=== PATIENT | female | born 1980 | race Caucasian/White ===

== ENCOUNTER 2019-02-08 18:55 | Emergency (ER) | payer OTHER, SELFPAY ==
--- OUTSIDE RECORDS SUMMARY | 2019-02-08 18:57 | XMS REPORT ---
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 [place] Special exam / Vance DON investigations and examinations - Gynecological examination Dermatitis 692.9 Active [place] Contact rash/non / Vance DON dermatitis and specific other eczema, skin unspecified eruption cause MORBID Active [place] Morbid obesity OBESITY / Vance DON Screening V76.12 Active [place] Other screening mammogram / Vance DON mammogram Venereal V74.5 Active [place] Screening disease / Vance DON examination for screening venereal disease Medication List Medication Instructions Start Stop Generic NDC Status Provider Patient Date Date Name Instruction LISINOPRIL 20 MG LISINOPRIL 10100571533 Active [place] Active ORAL TABLET 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 Active [place] Active INTRAUTERINE COPPER Vance DON INTRAUTERINE INTRAUTERINE DEVICE Vital Signs Date Name Value Unit Range Description blood pressure, diastolic 85 mm[Hg] BP brooks blood pressure, systolic 123 mm[Hg] BP sys height E&M 63 [in_us] Bdy height pulse rate E&M 89 /min Heart rate temperature E&M 97.9 [degF] Body temperature weight E&M 230.38 [lb_av] Weight Measured Diagnostic Results Date Name Value Unit Range Description Lab Report: Chlamydia/GC Amplification - Microbiology Neisseria gonorrhoeae DNA probe Negative Negative Lab Report: Chlamydia/GC Amplification - Lab chlamydia DNA probe Negative Negative Procedures Code Procedure Name Date Entry Date Standard Description [id number] Health Education/Supportive 09:33:52 CDT Counseling [id number] Health Education/Supportive 08:29:19 INSTRUCTOR PHYSICAL EDUCATION Counseling [facility]-[id number] New Patient Well Exam (40 - 64 Yrs) - [id number] 09:16:26 INSTRUCTOR PHYSICAL EDUCATION
[2019-02-08 20:45] LABS: Absolute Lymphocytes (CBC) 2.7 K/uL (0.7-4.9); Absolute Monocytes 0.5 K/uL (0.1-1.3); Absolute Neutrophil 7.2 K/uL (1.8-8.0); Basophils % 0.6 % (0-1.3); Eosinophils % 2.9 % (0-4.4); Hematocrit 36.6 % (36.0-45.0); Lymphocytes % 24.8 % (15.3-44.8); MPV 8.4 fL (7.6-11.3); RBC Red Blood Cell Count 4.27 M/uL (3.86-4.86)
[2019-02-08 20:46] LABS: Protime INR 1.1
[2019-02-08] MEDS ORDERED: ONDANSETRON 4 MG/2 ML VIAL ONE (20:51)
[2019-02-08] MEDS ORDERED: FAMOTIDINE 20 MG/2 ML VIAL IV ONE (20:51)
[2019-02-08 20:59] LABS: ALT/SGPT 15 U/L (12-78); AST/SGOT 12 U/L (15-37); Albumin 3.8 g/dL (3.4-5.0); Alkaline Phosphatase 85 U/L (45-117); BUN Blood Urea Nitrogen 15 mg/dL (7-18); Bicarbonate 26 mmol/L (21-32); Bilirubin Direct 0.1 mg/dL (0-0.2); Bilirubin Total 0.3 mg/dL (0.2-1.0); Glucose Level 96 mg/dL (74-106); Lipase 87 U/L (73-393); NT PRO-BNP 54 pg/mL (<125); Potassium 4.3 mmol/L (3.5-5.1); Protein, Total 7.7 g/dL (6.4-8.2); Sodium Level 139 mmol/L (136-145); Troponin (Emerg Dept Use Only) < 0.02 ng/mL (0.0-0.045)
--- NOTE | 2019-02-08 20:59 | RAD REPORT ---
EXAM DESCRIPTION: RAD - Chest Single View - 02/08/2019 8:46 pm CLINICAL HISTORY: retrosternal chest pain Chest pain. COMPARISON: CHEST SINGLE VIEW dated 12/06/2013; ABDOMEN ACUTE SERIES dated 02/18/2009 FINDINGS: Portable technique limits examination quality. The lungs are grossly clear. The heart is mildly prominent in size. No displaced fractures. IMPRESSION: No acute intrathoracic process suspected.
[2019-02-08] MEDS ORDERED: MAGNE/ALUM HYDROXD 30 ML UCUP ONE (21:45)
[2019-02-08] MEDS ORDERED: LIDOCAINE VISCOUS 2% SOLN 15 ML UDC ONE (21:45)
[2019-02-08 23:49] LABS: Urine Specific Gravity 1.025 (1.005-1.030)
[2019-02-09 01:21] LABS: Urine Blood 3+ (NEG); Urine Glucose NEGATIVE (NEG); Urine Protein NEGATIVE (NEG); Urine pH 7.5 (5.0-7.0)
--- NOTE | 2019-02-09 01:48 | EDPHYS ---
Physician Documentation [facility] Name: Jesusita Boles Age: 38 yrs Sex: Female : 1980 Arrival Date: 02/08/2019 Time: 18:56 Bed 16 Private MD: ED Physician Marco A Flores HPI: 02/08 20:20 This 38 yrs old Female presents to ER via Ambulatory with complaints of Chest cp Pain. 20:20 The patient or guardian reports chest pain that is located primarily in the substernal cp area. 20:20 Onset: 1 week(s) ago. The pain radiates to Duration: The patient or guardian reports cp multiple episodes, that wax and wane. 20:20 The chest pain is described as aching. cp 20:20 Associated signs and symptoms: Pertinent positives: shortness of breath, Pertinent cp negatives: abdominal pain, cough, diaphoresis, headache, lower extremity pain, lower extremity swelling, syncope, vomiting. 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 - Social history:: Smoking status: Patient/guardian denies using tobacco. - Ebola Screening: : No symptoms or risks identified at this time. ROS: 20:25 Constitutional: Negative for body aches, chills, fever, poor PO intake. cp 20:25 Eyes: Negative for injury, pain, redness, and discharge. cp 20:25 ENT: Negative for drainage from ear(s), ear pain, sore throat, difficulty swallowing, difficulty handling secretions. 20:25 Neck: Negative for pain with movement, pain at rest, stiffness. 20:25 Cardiovascular: Positive for chest pain, of the substernal, Negative for edema, palpitations. 20:25 Respiratory: Negative for cough, shortness of breath, wheezing. 20:25 Abdomen/GI: Positive for nausea, Negative for vomiting, diarrhea, constipation, dysphagia, black/tarry stool, rectal bleeding. 20:25 Back: Positive for radiated pain. 20:25 Skin: Negative for cellulitis, rash. 20:25 Neuro: Negative for altered mental status, dizziness, headache, numbness, syncope, weakness. 20:25 All other systems are negative. Exam: 20:30 Constitutional: The patient appears in no acute distress, alert, awake, cp non-diaphoretic, non-toxic, well developed, well nourished, uncomfortable. 20:30 Head/Face: Normocephalic, atraumatic. cp 20:30 Eyes: Pupils equal round and reactive to light, extra-ocular motions intact. Lids and lashes normal. Conjunctiva and sclera are non-icteric and not injected. Cornea within normal limits. Periorbital areas with no swelling, redness, or edema. ENT: Nares patent. No nasal discharge, no septal abnormalities noted. Tympanic membranes are normal and external auditory canals are clear. Oropharynx with no redness, swelling, or masses, exudates, or evidence of obstruction, uvula midline. Mucous membranes moist. Neck: Trachea midline, no thyromegaly or masses palpated, and no cervical lymphadenopathy. Supple, full range of motion without nuchal rigidity, or vertebral point tenderness. No Meningismus. Chest/axilla: Normal chest wall appearance and motion. Nontender with no deformity. No lesions are appreciated. 20:30 Cardiovascular: Rate: normal, Rhythm: regular, Pulses: Pulses are 2+ in right radial artery and left radial artery. Heart sounds: murmur, not appreciated, Edema: is not appreciated, JVD: is not appreciated. 20:30 Respiratory: the patient does not display signs of respiratory distress, Respirations: normal, no use of accessory muscles, no retractions, no splinting, no tachypnea, labored breathing, is not present, Breath sounds: are clear throughout, no decreased breath sounds, no stridor, no wheezing. 20:30 Abdomen/GI: Inspection: abdomen appears normal, Bowel sounds: active, all quadrants, Palpation: abdomen is soft and non-tender, in all quadrants, rebound tenderness, is not appreciated, voluntary guarding, is not appreciated, involuntary guarding, is not appreciated. 20:30 Back: pain, that is mild, ROM is normal. 20:30 Skin: no rash present. 20:30 Neuro: Orientation: to person, place \T\ time. Mentation: is normal, Cerebellar function: is grossly normal, Motor: moves all fours, strength is normal, Sensation: is normal. 02/09 00:45 ECG was reviewed by the Attending Physician. cp Vital Signs: 02/08 18:59 BP 129 / 91; Pulse 71; Resp 18 S; Temp 98.2(TE); Pulse Ox 100% on R/A; Weight 102.06 kg aa5 (R); Height 5 ft. 3 in. (160.02 cm) (R); Pain 10/10; 19:30 BP 135 / 77; Pulse 67; Resp 16 S; Pulse Ox 100% on R/A; rv 20:00 BP 121 / 71 RA; Pulse 81; Resp 18 S; Pulse Ox 100% on R/A; rv 20:30 BP 117 / 69 RA Supine; Pulse 60; Resp 16 S; Pulse Ox 100% on R/A; rv 21:30 BP 103 / 64 RA; Pulse 52; Resp 15 S; Pulse Ox 98% on R/A; rv 22:00 BP 107 / 73 RA; Pulse 58; Resp 17 S; Pulse Ox 100% on R/A; rv 23:00 BP 100 / 54; Pulse 67; Resp 17; Pulse Ox 99% ; rr5 02/09 00:00 BP 102 / 65; Pulse 62; Resp 17; Pulse Ox 98% ; rr5 01:00 BP 115 / 76; Pulse 63; Resp 16; Pulse Ox 99% ; rr5 02:00 BP 118 / 75; Pulse 66; Resp 17; Pulse Ox 99% ; rr5 02/08 18:59 Body Mass Index 39.86 (102.06 kg, 160.02 cm) aa5 MDM: 02/08 19:54 Patient medically screened. cp 20:30 Differential diagnosis: abnormal EKG, acute myocardial infarction, acute pericarditis, cp chest wall pain, esophagitis, gastritis, gastroesophageal reflux disease (GERD), pancreatitis, pleurisy, pneumonia, pneumothorax, pulmonary embolus, stable angina, unstable angina. 02/09 01:45 Data reviewed: vital signs, nurses notes, lab test result(s), EKG, radiologic studies, cp CT scan, plain films. 01:45 Test interpretation: by ED physician or midlevel provider: ECG, plain radiologic cp studies. Counseling: I had a detailed discussion with the patient and/or guardian regarding: the historical points, exam findings, and any diagnostic results supporting the discharge/admit diagnosis, lab results, radiology results, the need for outpatient follow up, a family practitioner, a mixologist, to return to the emergency department if symptoms worsen or persist or if there are any questions or concerns that arise at home. Response to treatment: the patient's symptoms have markedly improved after treatment, VSS. Patient reports pain resolved with medications. Will discharge to home for continued monitoring. 02/08 20:16 Order name: Basic Metabolic Panel 02/08 20:16 Order name: CBC with Diff 02/08 20:16 Order name: LFT's cp 02/08 20:16 Order name: Magnesium; Complete Time: 21:27 cp 02/08 20:16 Order name: NT PRO-BNP; Complete Time: 21:27 cp 02/08 20:16 Order name: PT-INR cp 02/08 20:16 Order name: Troponin (emerg Dept Use Only); Complete Time: 21:27 cp 02/08 20:16 Order name: Lipase; Complete Time: 21:27 cp 02/08 20:16 Order name: Basic Metabolic Panel; Complete Time: 21:27 EDMS 02/08 20:16 Order name: CBC with Automated Diff; Complete Time: 21:27 EDMS 02/08 20:16 Order name: Liver (Hepatic) Function; Complete Time: 21:27 EDMS 02/08 22:49 Order name: LAB Add On 02/08 22:52 Order name: D-Dimer EDIA 02/08 20:16 Order name: XRAY Chest (1 view); Complete Time: 21:27 cp 02/08 20:16 Order name: EKG; Complete Time: 20:17 cp 02/08 20:16 Order name: Cardiac monitoring; Complete Time: 20:36 cp 02/08 20:16 Order name: EKG - Nurse/Tech; Complete Time: 20:36 cp 02/08 20:16 Order name: IV Saline Lock; Complete Time: 20:36 cp 02/08 20:16 Order name: Labs collected and sent; Complete Time: 20:36 cp 02/08 20:16 Order name: O2 Per Protocol; Complete Time: 21:02 cp 02/08 20:16 Order name: O2 Sat Monitoring; Complete Time: 21: cp 02/08 20:16 Order name: Urine Test (obtain specimen); Complete Time: 23:52 cp 02/08 23:06 Order name: CT Chest For PE Angio cp 02/08 23:20 Order name: Urine --Ancillary (enter results) 6 02/08 23:53 Order name: Troponin I cp 02/08 23:56 Order name: Urine Dipstick--Ancillary (enter results) 6 02/08 22:12 Order name: Blood Pressure Recheck: bilateral upper extremity; Complete Time: 22:12 cp 02/08 23:53 Order name: EKG - Nurse/Tech; Complete Time: 00:41 cp EC:45 Rate is 66 beats/min. Rhythm is regular. RI interval is normal. QRS interval is normal. cp QT interval is normal. T waves are Inverted in lead III. Interpreted by me. Reviewed by me. Administered Medications: 02/08 20:30 Drug: Pepcid 20 mg Route: IVP; Site: left antecubital; rv 22:08 Follow up: Response: Pain is decreased rv 20:30 Drug: Zofran 4 mg Route: IVP; Site: left antecubital; rv 22:08 Follow up: Response: No adverse reaction rv 21:45 Drug: GI Cocktail without - (Maalox Suspension 30 ml, Lidocaine Liquid 2 % 15 rv ml) Route: PO; 02/09 02:00 Follow up: Response: No adverse reaction rr5 Disposition: 03:53 Co-signature as Attending Physician, Marco A Flores MD. ma2 Disposition: 02/09/19 01:47 Discharged to Home. Impression: Other chest pain, Gastro-esophageal reflux disease. - Condition is Stable. - Discharge Instructions: Nonspecific Chest Pain, Gastroesophageal Reflux Disease, Adult, Aspirin and Your Heart. - Prescriptions for Protonix 40 mg Oral Tablet - take 1 tablet by ORAL route once daily; 30 tablet. Zofran 4 mg Oral Tablet - take 1 tablet by ORAL route every 12 hours As needed; 20 tablet. - Medication Reconciliation Form, Thank You Letter, Antibiotic Education, Prescription Opioid Use, Family Work Release form. - Follow up: Marcelino Lopez MD; When: 1 week; Reason: Worsening of condition. - Problem is new. - Symptoms have improved. Signatures: Dispatcher [employer] Zandra Barraza RN RN aa5 Christofer Grace PA PA cp Marco A Flores MD MD ma2 Hunter Schultz, RN RN rv Jamil Quintana, RN RN rr5 Corrections: (The following items were deleted from the chart) 02/08 22:52 22:49 D-DIMER+COAG.LAB.BRZ ordered. EDMS EDMS 02/09 02:01 01:47 02/09/2019 01:47 Discharged to Home. Impression: Other chest pain; rr5 Gastro-esophageal reflux disease. Condition is Stable. Forms are Medication Reconciliation Form, Thank You Letter, Antibiotic Education, Prescription Opioid Use. Follow up: Marcelino Lopez; When: 1 week; Reason: Worsening of condition. Problem is new. Symptoms have improved. cp 07:28 02/08 20:20 Associated signs and symptoms: Pertinent positives: nausea, Pertinent cp negatives: cough, diaphoresis, lower extremity pain, lower extremity swelling, shortness of breath, syncope, cp
--- NOTE | 2019-02-09 01:48 | ER ---
Nurse's Notes [facility] Name: Jesusita Boles Age: 38 yrs Sex: Female : 1980 Arrival Date: 02/08/2019 Time: 18:56 Bed 16 Private MD: Diagnosis: Other chest pain;Gastro-esophageal reflux disease Presentation: 02/08 18:58 Presenting complaint: Patient states: mid-sternal chest pain that began 1 week ago and aa5 has gotten worse since last night. Pt reports SOB, denies vomiting. Transition of care: patient was not received from another setting of care. Onset of symptoms was 2018. Risk Assessment: Do you want to hurt yourself or someone else? Patient reports no desire to harm self or others. Initial Sepsis Screen: Does the patient meet any 2 criteria? No. Patient's initial sepsis screen is negative. Does the patient have a suspected source of infection? No. Patient's initial sepsis screen is negative. Care prior to arrival: None. 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 - Social history:: Smoking status: Patient/guardian denies using tobacco. - Ebola Screening: : No symptoms or risks identified at this time. Screenin:04 Abuse screen: Denies threats or abuse. Denies injuries from another. Nutritional rv screening: No deficits noted. Tuberculosis screening: No symptoms or risk factors identified. Fall Risk None identified. Assessment: 20:00 General: Appears in no apparent distress. comfortable, Behavior is calm, cooperative. rv 20:00 Pain: Complains of pain in chest Pain does not radiate. Pain began suddenly. Neuro: rv Level of Consciousness is awake, alert, obeys commands, Oriented to person, place, time, situation. Cardiovascular: Rhythm is regular. Respiratory: Airway is patent. GI: No signs and/or symptoms were reported involving the gastrointestinal system. : No signs and/or symptoms were reported regarding the genitourinary system. EENT: No signs and/or symptoms were reported regarding the EENT system. Derm: Skin is intact. 21:08 Reassessment: Patient appears in no apparent distress at this time. Patient and/or rv family updated on plan of care and expected duration. Pain level reassessed. Patient is alert, oriented x 3, equal unlabored respirations, skin warm/dry/pink. 22:09 Reassessment: Patient appears in no apparent distress at this time. Patient and/or rv family updated on plan of care and expected duration. Pain level reassessed. Patient is alert, oriented x 3, equal unlabored respirations, skin warm/dry/pink. Patient states feeling better. Patient states symptoms have improved. 23:53 Reassessment: Patient appears in no apparent distress at this time. back on Ct scan rr5 scan placed on bed comfortably. 02/09 00:40 Reassessment: Patient appears in no apparent distress at this time. Patient is alert, rr5 oriented x 3, equal unlabored respirations, skin warm/dry/pink. repeat ECG done. awaiting for laboratory report. Patient states feeling better. Patient states symptoms have improved. 02:00 Reassessment: Patient appears in no apparent distress at this time. Patient is alert, rr5 oriented x 3, equal unlabored respirations, skin warm/dry/pink. discharge instruction given and explained without complaints made. Patient states feeling better. Patient states symptoms have improved. Vital Signs: 02/08 18:59 BP 129 / 91; Pulse 71; Resp 18 S; Temp 98.2(TE); Pulse Ox 100% on R/A; Weight 102.06 kg aa5 (R); Height 5 ft. 3 in. (160.02 cm) (R); Pain 10/10; 19:30 BP 135 / 77; Pulse 67; Resp 16 S; Pulse Ox 100% on R/A; rv 20:00 BP 121 / 71 RA; Pulse 81; Resp 18 S; Pulse Ox 100% on R/A; rv 20:30 BP 117 / 69 RA Supine; Pulse 60; Resp 16 S; Pulse Ox 100% on R/A; rv 21:30 BP 103 / 64 RA; Pulse 52; Resp 15 S; Pulse Ox 98% on R/A; rv 22:00 BP 107 / 73 RA; Pulse 58; Resp 17 S; Pulse Ox 100% on R/A; rv 23:00 BP 100 / 54; Pulse 67; Resp 17; Pulse Ox 99% ; rr5 04 00:00 BP 102 / 65; Pulse 62; Resp 17; Pulse Ox 98% ; rr5 01:00 BP 115 / 76; Pulse 63; Resp 16; Pulse Ox 99% ; rr5 02:00 BP 118 / 75; Pulse 66; Resp 17; Pulse Ox 99% ; rr5 02/08 18:59 Body Mass Index 39.86 (102.06 kg, 160.02 cm) aa5 ED Course: 02/08 18:56 Patient arrived in ED. ds1 18:58 Arm band placed on. aa5 18:59 Triage completed. aa5 19:05 EKG completed in triage. Results shown to MD. aa5 19:54 Christofer Grace PA is PHCP. cp 19:54 Marco A Flores MD is Attending Physician. cp 19:58 Hunter Schultz, LUIS MANUEL is Primary Nurse. rv 20:45 Inserted saline lock: 22 gauge in left antecubital area, using aseptic technique. Blood rv collected. Patient maintains SpO2 saturation greater than 95% on room air. 20:47 XRAY Chest (1 view) In Process Unspecified. EDMS 21:03 Basic Metabolic Panel Sent. rv 21:03 CBC with Diff Sent. rv 21:03 LFT's Sent. rv 21:04 Patient has correct armband on for positive identification. Placed in gown. Bed in low rv position. Call light in reach. Side rails up X 1. Adult w/ patient. playground aide on. Pulse ox on. NIBP on. 23:32 Inserted saline lock: 20 gauge in right forearm, using aseptic technique. rr5 02/09 00:44 CT completed. Patient tolerated procedure well. Patient moved to CT via wheelchair. Patient moved back from CT. 00:54 CT Chest For PE Angio In Process Unspecified. EDMS 01:46 Marcelino Lopez MD is Referral Physician. cp 02:00 No provider procedures requiring assistance completed. IV discontinued, intact, rr5 bleeding controlled, No redness/swelling at site. Pressure dressing applied. Administered Medications: 02/08 20:30 Drug: Pepcid 20 mg Route: IVP; Site: left antecubital; rv 22:08 Follow up: Response: Pain is decreased rv 20:30 Drug: Zofran 4 mg Route: IVP; Site: left antecubital; rv 22:08 Follow up: Response: No adverse reaction rv 21:45 Drug: GI Cocktail without - (Maalox Suspension 30 ml, Lidocaine Liquid 2 % 15 rv ml) Route: PO; 02/09 02:00 Follow up: Response: No adverse reaction rr5 Outcome: 01:47 Discharge ordered by . cp 02:00 Discharged to home ambulatory, with family. rr5 02:00 Condition: stable 02:00 Discharge instructions given to patient, family, Instructed on discharge instructions, follow up and referral plans. medication usage, Demonstrated understanding of instructions, follow-up care, medications, Prescriptions given X 2. 02:01 Patient left the ED. rr5 Signatures: Dispatcher [employer] EDMS Ming Viera Demi ds1 Zandra Ferreira RN RN aa5 Christofer Grace PA PA Hunter Negron RN RN rv Jamil Quintana RN RN rr5
[2019-02-09 02:07] VITALS: TEMP 98.2
[2019-02-09 02:16] VITALS: O2SAT 99
[2019-02-09 02:17] VITALS: BP 118/75
--- NOTE | 2019-02-09 10:04 | RAD REPORT ---
EXAM DESCRIPTION: CT - Chest For Pe Angio - 02/09/2019 5:08 am CLINICAL HISTORY: Chest pain. COMPARISON: None. TECHNIQUE: Axial [address] imaging of the thorax utilizing intravenous contrast. Reformatted 3 mm anna nal and sagittal images reviewed. Reconstructed right and left oblique 2 mm images of the pulmonary v asculature also reviewed. This exam was performed according to our departmental dose-optimization program which includes automa garo exposure control, adjustment of the mA and/or kV according to patient size and/or use of iterativ e reconstruction technique FINDINGS: PULMONARY ARTERIES: Normal caliber main pulmonary artery. No filling defect within the ri ght atrium, right ventricle, central, or peripheral pulmonary vasculature. HEART/GREAT VESSELS: The heart is borderline enlarged. No pericardial fluid. Normal caliber thoracic aorta. MEDIASTINUM/SARAH: No filling defect within the central airways. Normal esophagus. No adenopathy. LUNGS/PLEURA: Lungs and pleural spaces are clear. No pulmonary edema. CHEST WALL/SOFT TISSUES: Sclerotic focus within the tonsil sternum with mild spiculated margins cons istent with benign bone island. Unremarkable thoracic spine alignment. Benign bone island within the T7 vertebral body. Unremarkable included thyroid. No axillary adenopathy. UPPER ABDOMEN: The imaged liver, spleen, and stomach appear normal. IMPRESSION: 1. No pulmonary embolism. No acute chest disease. Electronically signed by: Peg Nguyen DO 02/09/2019 1:09 AM CDT Due to temporary technical issues with the PACS/Fluency reporting system, reports are being signed by the in house radiologist as a courtesy to ensure prompt reporting. The interpreting radiologist is f ully responsible for the content of the report.
== END 2019-02-09 02:01 | disposition home or self-care (01) ==
LOC: ER 18:55
DX: R07.9 Chest pain, unspecified (principal); K21.9 Gastro-esophageal reflux disease without esophagitis; I10 Essential (primary) hypertension
CPT/HCPCS: 36415; 71045; 71275; 80048; 80076; 81003; 81025; 83690; 83735; 83880; 84484; 85025; 85379; 85610; 93005; 96374; 96375; 99285; J2405; Q9967